=== PATIENT | male | born 1985 ===

== ENCOUNTER 2019-01-22 16:23 | Outpatient (CLI) | payer OTHER ==
[~2019-01-22 16:23] MED LIST: FLONASE16 GM NS; GILTUSS TR TAB1 EACH PO; SEPTRA DS; ZITHROMAX200 MG PO; ZYRTEC10 MG PO
== END 2019-01-22 16:34 | disposition home or self-care (01) ==
LOC: LAB 16:23
DX: J11.1 Influenza due to unidentified influenza virus with other respiratory manifestations (principal); A43.8 Other forms of nocardiosis; R50.9 Fever, unspecified

== ENCOUNTER → 2019-01-30 11:07 | Outpatient (CLI) | payer OTHER | END | disposition home or self-care (01) | LOC: LAB 11:07 | DX: R73.03 Prediabetes (principal) ==

== ENCOUNTER 2019-01-31 09:09 | Outpatient (CLI) | payer OTHER | END 2019-01-31 09:11 | disposition home or self-care (01) | LOC: RAD 09:09 | DX: M54.5 Low back pain (principal) ==

== ENCOUNTER 2019-02-01 15:59 | Emergency (ER) | payer OTHER ==
[~2019-02-01] VITALS: Ht 160 cm; Wt 63.5 kg
== END 2019-02-01 20:06 | disposition home or self-care (01) ==
LOC: ER 15:59
DX: K61.0 Anal abscess (principal); N50.812 Left testicular pain; N50.811 Right testicular pain

== ENCOUNTER → 2020-02-04 | Outpatient (CLI) | payer OTHER | END | disposition home or self-care (01) | LOC: LAB 16:44 | PROVIDERS: ATTEND General Practice | DX: Z11.1 Encounter for screening for respiratory tuberculosis (principal); R21 Rash and other nonspecific skin eruption; L50.0 Allergic urticaria ==

== ENCOUNTER 2021-05-24 08:07 | Outpatient (CLI) | payer OTHER | END 2021-05-24 08:10 | disposition home or self-care (01) | LOC: LAB 08:07 | PROVIDERS: ATTEND Emergency Medicine Pediatric Emergency Medicine | DX: Z03.818 Encounter for observation for suspected exposure to other biological agents ruled out (principal) ==

== ENCOUNTER → 2021-06-24 09:00 | Outpatient (CLI) | payer OTHER | END | disposition home or self-care (01) | LOC: PPH VACUNA 09:00 | PROVIDERS: ATTEND Emergency Medicine Pediatric Emergency Medicine | DX: Z23 Encounter for immunization (principal) ==

== ENCOUNTER 2021-09-02 09:00 | Outpatient (CLI) | payer OTHER | END 2021-09-02 09:15 | disposition home or self-care (01) | LOC: PPH VACUNA 09:00 | PROVIDERS: ATTEND Emergency Medicine Pediatric Emergency Medicine | DX: Z23 Encounter for immunization (principal) ==

== ENCOUNTER 2022-02-07 09:19 | Outpatient (CLI) | payer OTHER | END 2022-02-07 09:20 | disposition home or self-care (01) | LOC: LAB 09:19 | PROVIDERS: ATTEND Preventive Medicine Occupational Medicine | DX: U07.1 COVID-19 (principal) ==

== ENCOUNTER 2022-02-09 09:37 | Emergency (ER) | payer OTHER ==
[~2022-02-09] VITALS: Ht 162.6 cm; Wt 63.5 kg
[2022-02-09] MEDS ORDERED: ZITHROMAX500 MG PO (15:48)
[2022-02-09] MEDS ORDERED: TUSSIN DM LIQU118 ML PO (15:48)
[2022-02-09] MEDS ORDERED: MEDROLPACK PO (15:48)
== END 2022-02-09 15:58 | disposition home or self-care (01) ==
LOC: ER 09:37
DX: U07.1 COVID-19 (principal)

== ENCOUNTER 2022-05-04 12:28 | Outpatient (CLI) | payer OTHER ==
[~2022-05-04 12:28] MED LIST changes: +MEDROLPACK PO; +TUSSIN DM LIQU118 ML PO; +ZITHROMAX500 MG PO
== END 2022-05-04 12:33 | disposition home or self-care (01) ==
LOC: PPH VACUNA 12:28
PROVIDERS: ATTEND Emergency Medicine Pediatric Emergency Medicine
DX: Z23 Encounter for immunization (principal)